=== PATIENT | male | born 1935 | race Caucasian/White ===

== ENCOUNTER 2016-08-30 12:45 | Inpatient (IN) | payer MEDICARE, OTHER ==
[2016-08-30 09:22] LABS: CREATININE 1.3 mg/dL (0.7-1.2); POTASSIUM 3.6 mmol/L (3.5-5.1)
[~2016-08-30 12:45] MED LIST: ACETAMINOPHEN325 MG PO; ADVAIR DISKUS INH; AMLODIPINE BESY10 MG PO; CERTAGEN1 EACH PO; FAMOTIDINE40 MG PO; FERROUS GLUCON324 M2 PO; FLONASE ALLER15.8 ML; GLUCOPHAGE500 MG PO; LAXATIVE OF CHOICE; LISINOPRIL-HCT1 EAC2 PO; LORATADINE10 MG PO; MIRALAX17 GM PO; MOBIC7.5 MG PO; NEURONTIN100 MG PO; PROAIR HFA8.5 GM INH; PROZAC20 MG PO; REQUIP0.5 MG PO; SINGULAIR10 MG PO; SPIRIVA18 MCG INH; VENTOLIN (2.5 MG/3 M NEB; XARELTO10 MG PO
[2016-08-31 04:22] LABS: HCT 34.3 % (42.0-52.0); MCH 26.6 pg (25.0-31.0); MCHC 32.1 g/dL (32.0-36.0); MCV 83.1 fL (78.0-100.0); MPV 9.4 fL (6.0-9.5); RBC 4.13 M/uL (4.70-6.00); RDW 14.7 % (11.5-14.0); WBC 11.7 K/uL (4.0-10.5)
[2016-08-31 04:38] LABS: CREATININE 1.5 mg/dL (0.7-1.2); POTASSIUM 3.8 mmol/L (3.5-5.1)
[2016-08-31 10:44] LABS: BILIRUBIN NEGATIVE (NEGATIVE); BLOOD 3+ Ery/uL (NEGATIVE); CLARITY HAZY (CLEAR); COLOR YELLOW (YELLOW); GLUCOSE (U) NORMAL (NORMAL); KETONE (U) TRACE mg/dL (NEGATIVE); LEUKOCYTES NEGATIVE Leu/uL (NEGATIVE); NITRITE NEGATIVE (NEGATIVE); PROTEIN 1+ mg/dL (NEGATIVE); UROBILINOGEN 0.2 mg/dL (0.2-1.0)
[2016-08-31 11:26] LABS: URINARY RBC TNTC
[2016-08-31 11:28] LABS: BACTERIA TRACE
[2016-09-01 06:28] LABS: HCT 29.3 % (42.0-52.0); HGB 9.5 g/dl (13.2-18.0); MCH 26.9 pg (25.0-31.0); MCHC 32.4 g/dL (32.0-36.0); MPV 9.7 fL (6.0-9.5); RBC 3.53 M/uL (4.70-6.00); RDW 14.9 % (11.5-14.0); WBC 10.6 K/uL (4.0-10.5)
[2016-09-01 08:30] LABS: CREATININE 1.4 mg/dL (0.7-1.2); POTASSIUM 3.7 mmol/L (3.5-5.1)
[2016-09-02 05:05] LABS: HCT 26.7 % (42.0-52.0); HGB 8.6 g/dl (13.2-18.0); MCHC 32.2 g/dL (32.0-36.0); MPV 9.9 fL (6.0-9.5); RBC 3.18 M/uL (4.70-6.00); RDW 14.9 % (11.5-14.0); WBC 12.8 K/uL (4.0-10.5)
[2016-09-02 05:39] LABS: CREATININE 1.8 mg/dL (0.7-1.2); POTASSIUM 3.5 mmol/L (3.5-5.1)
[2016-09-03 04:07] LABS: HGB 7.8 g/dl (13.2-18.0); MCH 27.3 pg (25.0-31.0); MCHC 32.5 g/dL (32.0-36.0); MCV 83.9 fL (78.0-100.0); MPV 9.8 fL (6.0-9.5); RBC 2.86 M/uL (4.70-6.00); RDW 14.8 % (11.5-14.0)
[2016-09-03 04:24] LABS: CREATININE 2.1 mg/dL (0.7-1.2); POTASSIUM 3.6 mmol/L (3.5-5.1)
[2016-09-04 04:53] LABS: HGB 9.6 g/dl (13.2-18.0); MCH 27.8 pg (25.0-31.0); MCHC 33.1 g/dL (32.0-36.0); MCV 84.1 fL (78.0-100.0); MPV 9.4 fL (6.0-9.5); RBC 3.45 M/uL (4.70-6.00); RDW 14.7 % (11.5-14.0)
[2016-09-04 05:07] LABS: POTASSIUM 4.1 mmol/L (3.5-5.1)
[2016-09-05 05:11] LABS: HCT 28.9 % (42.0-52.0); HGB 9.4 g/dl (13.2-18.0); MCH 27.8 pg (25.0-31.0); MCHC 32.5 g/dL (32.0-36.0); MCV 85.5 fL (78.0-100.0); MPV 9.7 fL (6.0-9.5); RBC 3.38 M/uL (4.70-6.00); RDW 14.9 % (11.5-14.0); WBC 8.5 K/uL (4.0-10.5)
[2016-09-05 05:26] LABS: CREATININE 1.5 mg/dL (0.7-1.2); POTASSIUM 4.3 mmol/L (3.5-5.1)
== END 2016-09-05 16:12 | DRG 470 ==
LOC: FMS 12:45
PROVIDERS: Internal Medicine; Internal Medicine Nephrology; Nurse Practitioner Adult Health; ADMIT Legal Medicine
PROC: 8E0YXBZ Computer Assisted Procedure of Lower Extremity (ICD-10-PCS; 2016-08-30)
PROC: 0SRC0J9 Replacement of Right Knee Joint with Synthetic Substitute, Cemented, Open Approach (ICD-10-PCS; principal; 2016-08-30 10:30)
PROC: 30233N1 Transfusion of Nonautologous Red Blood Cells into Peripheral Vein, Percutaneous Approach (ICD-10-PCS; 2016-09-03)
DX: M17.11 Unilateral primary osteoarthritis, right knee (principal); N17.9 Acute kidney failure, unspecified; J96.10 Chronic respiratory failure, unspecified whether with hypoxia or hypercapnia; E11.22 Type 2 diabetes mellitus with diabetic chronic kidney disease; Z99.81 Dependence on supplemental oxygen; D62 Acute posthemorrhagic anemia; J44.1 Chronic obstructive pulmonary disease with (acute) exacerbation; M21.161 Varus deformity, not elsewhere classified, right knee; Z88.2 Allergy status to sulfonamides; Z88.8 Allergy status to other drugs, medicaments and biological substances; Z83.3 Family history of diabetes mellitus; Z82.49 Family history of ischemic heart disease and other diseases of the circulatory system; K21.9 Gastro-esophageal reflux disease without esophagitis; Z86.73 Personal history of transient ischemic attack (TIA), and cerebral infarction without residual deficits; G25.81 Restless legs syndrome; Z87.891 Personal history of nicotine dependence; E78.00 Pure hypercholesterolemia, unspecified; I12.9 Hypertensive chronic kidney disease with stage 1 through stage 4 chronic kidney disease, or unspecified chronic kidney disease; N18.9 Chronic kidney disease, unspecified; I16.0 Hypertensive urgency; E78.5 Hyperlipidemia, unspecified
CPT/HCPCS: 36415; 36430; 73560; 76770; 80048; 81001; 82570; 82962; 84300; 86850; 86900; 86901; 86922; 88305; 88311; 94010; 94640; 94667; 94668; 94760; 94762; 97110; 97116; 97163; 97167; 97530; 97530-GP; 97535; C1776; J0131; J0697; J1644; J1956; J2274; J2704; J2795; J2930; P9016

== ENCOUNTER 2016-09-05 16:12 | Inpatient (IN) | payer MEDICARE, OTHER ==
[2016-09-20] MEDS ORDERED: BENADRYL25 M1 PO (13:16)
[2016-09-20] MEDS ORDERED: FEOSOL325 MG PO (13:16)
[2016-09-20] MEDS ORDERED: DUONEB 2.5-0.5M1 AMP INH (13:17)
[2016-09-20] MEDS ORDERED: BREO ELLIPTA 11 EACH INH (13:19)
[2016-09-20] MEDS ORDERED: TYLENOL #31 EACH PO (13:20)
[2016-09-20] MEDS ORDERED: ASPIR 8181 MG PO (13:21)
--- NOTE | 2016-09-20 13:21 | NUR ---
PT. D/C HOME. HIS DAUGHTER WILL BE STAYING WITH HIM DURING HIS RECUPERATION. HE HAS A ROLLING WALKER. PT. REQUESTED OUTPT. THERAPY AT [facility]. FIRST APPT. IS 09/21/16 @ 8:00 A.M. PTDoron NARANJO THERAPY IS COMPLETE. HE HAS USED HIS 21 DAYS FOR THE CPM. D/C NOTICE AND QUESTIONNAIRE GIVEN.
[2016-09-20] MEDS ORDERED: PERCOCET 5-3251 EACH PO (14:43)
== END 2016-09-20 13:45 | disposition home or self-care (01) | DRG 560 ==
LOC: FSNU 16:12
PROVIDERS: ADMIT Legal Medicine
DX: Z47.1 Aftercare following joint replacement surgery (principal); J96.10 Chronic respiratory failure, unspecified whether with hypoxia or hypercapnia; N17.9 Acute kidney failure, unspecified; Z99.81 Dependence on supplemental oxygen; Z96.651 Presence of right artificial knee joint; J44.9 Chronic obstructive pulmonary disease, unspecified; E11.9 Type 2 diabetes mellitus without complications; I12.9 Hypertensive chronic kidney disease with stage 1 through stage 4 chronic kidney disease, or unspecified chronic kidney disease; N18.9 Chronic kidney disease, unspecified; K21.9 Gastro-esophageal reflux disease without esophagitis
CPT/HCPCS: 71020; 92523; 92526; 97110; 97116; 97161; 97167; 97530-GP; 97532; 97535